=== PATIENT | female | born 1985 | race African-American/Black ===

== ENCOUNTER 2017-02-08 13:46 | Emergency (ER) | payer SELFPAY ==
[~2017-02-08] VITALS: Ht 160 cm; Wt 67.7 kg
[2017-02-08 13:49] VITALS: BP 121/81; PULSE 101; TEMP 98.9
[2017-02-08] MEDS ORDERED: CALCIUM CARBON650 M2 PO (13:52)
[2017-02-08] MEDS ORDERED: NORCO 325 MG-51 TAB PO (15:14)
== END 2017-02-08 15:31 | disposition home or self-care (01) ==
LOC: COL.ER 13:46
DX: S30.0XXA Contusion of lower back and pelvis, initial encounter (principal); F17.210 Nicotine dependence, cigarettes, uncomplicated; Z87.39 Personal history of other diseases of the musculoskeletal system and connective tissue; V00.131A Fall from skateboard, initial encounter; Y93.21 Activity, ice skating

== ENCOUNTER 2021-08-10 00:33 | Emergency (ER) | payer SELFPAY ==
[~2021-08-10] VITALS: Ht 160 cm; Wt 111.4 kg
[~2021-08-10 00:33] MED LIST: CALCIUM CARBON650 M2 PO; NORCO 325 MG-51 TAB PO
[2021-08-10 00:34] VITALS: TEMP 97.8
[2021-08-10 01:27] LABS: BASO # 0.1 K/mm3 (0.0-0.2); BASO % 0.4 % (0.0-2.0); EOS # 0.1 K/mm3 (0.0-0.7); GRAN # 10.6 K/mm3 (1.4-6.5); GRAN % 76.5 % (42.2-75.2); HEMATOCRIT 37.3 % (37.0-47.0); HEMOGLOBIN 12.2 g/dl (12.5-16.0); LYMPH # 2.1 K/mm3 (1.2-3.4); LYMPH % 15.2 % (20.0-51.0); MEAN CELL VOLUME 83 fl (80.0-100.0); MEAN CORPUSCULAR HEMOGLOBIN 27 pg (27-31); MEAN CORPUSCULAR HGB CONC 33 g/dl (33.0-37.0); MEAN PLATELET VOLUME 9.8 fl (7.4-10.4); MONO # 0.9 K/mm3 (0.1-0.6); MONO % 6.5 % (1.7-9.3); PLATELET COUNT 401 K/mm3 (130-400); RED BLOOD COUNT 4.52 M/mm3 (4.10-5.30); REDCELL DISTRIBUTION WIDTH-CV 13.6 % (11.5-14.5)
[2021-08-10 01:32] LABS: COLLECTION METHOD CLEAN CATCH
[2021-08-10 01:46] LABS: MUCOUS Present (NOT PRESENT); PH 5 (5-8); URINE APPEARANCE Cloudy (CLEAR/HAZY); URINE BACTERIA Rare /hpf (NONE SEEN); URINE BILIRUBIN Negative (NEGATIVE); URINE BLOOD 3+ (NEGATIVE); URINE COLOR Amber (YELLOW); URINE GLUCOSE Negative (NEGATIVE); URINE KETONE 1+ (NEGATIVE); URINE LEUKOCYTE ESTERASE Negative (NEGATIVE); URINE NITRATE Negative (NEGATIVE); URINE PROTEIN(semi-quant) 2+ (NEGATIVE); URINE RBC 20-50 /hpf (0-2)
[2021-08-10 01:47] LABS: TRICYCLIC ANTIDEPRESS URINE NEGATIVE
[2021-08-10 01:50] LABS: ALANINE AMINOTRANSFERASE 22 U/L (0-55); ALBUMIN 3.7 gm/dL (3.5-5.0); ALKALINE PHOSPHATASE 67 U/L (40-150); ANION GAP 15 mmol/L (7-16); AST,SGOT 28 U/L (5-34); BILIRUBIN,TOTAL 0.4 mg/dL (0.2-1.2); BLOOD UREA NITROGEN 17 mg/dL (7-19); CALCIUM 9.2 mg/dL (8.4-10.2); CARBON DIOXIDE 22 mmol/L (22-29); CHLORIDE 102 mmol/L (98-107); CREATININE, serum 0.77 mg/dL (0.57-1.11); GLUCOSE 141 mg/dL (70-99); SODIUM 139 mmol/L (136-145)
[2021-08-10 02:01] LABS: ACETAMINOPHEN < 1.0 ug/mL (10-30); ALCOHOL(ethanol),MEDICAL < 10 mg/dL (0-10); POTASSIUM 2.8 mmol/L (3.5-4.5); SALICYLATE < 5.0 mg/dL (15.0-30.0)
[2021-08-10 13:59] VITALS: BP 117/86; PULSE 90
== END 2021-08-10 13:59 | disposition home or self-care (01) ==
LOC: COL.ER 00:33
PROVIDERS: Nurse Practitioner
DX: F41.9 Anxiety disorder, unspecified (principal); F22 Delusional disorders; E87.2 Acidosis; E87.6 Hypokalemia; Z20.822 Contact with and (suspected) exposure to COVID-19

== ENCOUNTER 2022-03-07 16:06 | Emergency (ER) | payer SELFPAY ==
[~2022-03-07] VITALS: Ht 160 cm; Wt 100.0 kg
[2022-03-07 16:10] VITALS: PULSE 138; TEMP 98.5
[2022-03-07 20:04] LABS: BASO % 0.4 % (0.0-2.0); EOS % 0.4 % (0.0-4.0); GRAN # 6.6 K/mm3 (1.4-6.5); GRAN % 70.1 % (42.2-75.2); HEMATOCRIT 40.9 % (37.0-47.0); HEMOGLOBIN 13.6 g/dl (12.5-16.0); LYMPH % 21.4 % (20.0-51.0); MEAN CELL VOLUME 77 fl (80.0-100.0); MEAN CORPUSCULAR HEMOGLOBIN 26 pg (27-31); MEAN CORPUSCULAR HGB CONC 33 g/dl (33.0-37.0); MEAN PLATELET VOLUME 10.4 fl (7.4-10.4); MONO # 0.7 K/mm3 (0.1-0.6); MONO % 7.4 % (1.7-9.3); PLATELET COUNT 414 K/mm3 (130-400); RED BLOOD COUNT 5.34 M/mm3 (4.10-5.30); REDCELL DISTRIBUTION WIDTH-CV 14.3 % (11.5-14.5)
[2022-03-07 20:25] LABS: ALANINE AMINOTRANSFERASE 19 U/L (0-55); ALBUMIN 3.7 gm/dL (3.5-5.0); ALKALINE PHOSPHATASE 65 U/L (40-150); ANION GAP 16 mmol/L (7-16); AST,SGOT 16 U/L (5-34); BILIRUBIN,TOTAL 0.4 mg/dL (0.2-1.2); BLOOD UREA NITROGEN 13 mg/dL (7-19); CALCIUM 9.8 mg/dL (8.4-10.2); CARBON DIOXIDE 22 mmol/L (22-29); CHLORIDE 104 mmol/L (98-107); CREATININE, serum 0.83 mg/dL (0.57-1.11); GLUCOSE 116 mg/dL (70-99); LIPASE 20 U/L (8-78); PHOSPHOROUS 2.5 mg/dL (2.3-4.7); POTASSIUM 3.1 mmol/L (3.5-4.5); SODIUM 142 mmol/L (136-145); TOTAL PROTEIN 8.2 gm/dL (6.2-8.1)
[2022-03-07 20:27] LABS: SALICYLATE < 5.0 mg/dL (15.0-30.0)
[2022-03-07 20:44] LABS: TSH w REFLEX 0.316 uIU/mL (0.350-4.940)
== END 2022-03-07 20:43 | disposition left against medical advice (07) ==
LOC: COL.ER 16:06
PROVIDERS: Emergency Medicine
DX: F41.0 Panic disorder [episodic paroxysmal anxiety] (principal); R44.1 Visual hallucinations; Z28.310 Unvaccinated for COVID-19
CPT/HCPCS: J7030